=== PATIENT | male | born 1990 ===

== ENCOUNTER 2018-01-25 20:25 | Emergency (ER) | payer OTHER ==
[2018-01-25] MEDS ORDERED: Tetan/Diph/Pertus SYR(Tdap)* 0.5 ML SYR(BOOSTRIX) use SYR IM ONE (20:54)
--- NOTE | 2018-01-25 20:54 | UC ---
UC General HPI - HPI Summary HPI Summary: 27 yo gentleman presents with c/o L earlobe redness, swelling progressively worse last few days. No fever / chills. Reports similar problem with R earlobe several years ago - abscess. No other sores or rash. Has tried warm compress, but still worse. Recalls having had a tetanus immun in the past, last date unk. No current or recent abx. - History of Current Complaint Chief Complaint: UCEar Stated Complaint: SOFT TISSUE Time Seen by Provider: 01/25/18 20:46 Hx Obtained From: Patient Pain Intensity: 3 - Allergy/Home Medications Allergies/Adverse Reactions: Allergies Allergy/AdvReac Type Severity Reaction Status Date / Time No Known Allergies Allergy Verified 01/25/18 20:37 Home Medications: Home Medications Ibuprofen TAB* [Advil TAB*] 400 mg PO ONCE PRN 01/25/18 [History Confirmed 01/25] PMH/Surg Hx/FS Hx/Imm Hx Previously Healthy: Yes - still looking for a pcp and dentist - Surgical History Surgical History: None - Family History Known Family History: Positive: Unknown - Social History Occupation: Employed Full-time Alcohol Use: Occasionally Substance Use Type: None Smoking Status (MU): Current Every Day Smoker Type: Cigarettes Amount Used/How Often: 1/2 PPD Review of Systems Constitutional: Negative Skin: Other - see hpi Eyes: Negative ENT: Other - see hpi Respiratory: Negative Cardiovascular: Negative Gastrointestinal: Negative Genitourinary: Negative Motor: Negative Neurovascular: Negative Musculoskeletal: Negative Neurological: Negative Psychological: Negative Is Patient Immunocompromised?: No All Other Systems Reviewed And Are Negative: Yes Physical Exam Triage Information Reviewed: Yes Appearance: Well-Appearing - Nontoxic appearance. Sitting up, conversing easily and appropriately., Thin Vital Signs: Initial Vital Signs Temp 97.7 F 01/25/18 20:31 Pulse 79 01/25/18 20:31 Resp 16 01/25/18 20:31 BP 128/90 01/25/18 20:31 Pulse Ox 99 01/25/18 20:31 Eye Exam: Normal - grossly normal ENT: Positive: Hearing grossly normal, Pharynx normal, Other - L earlobe + red , + swelling. Redness fairly localized, extends just behind L ear, not superior. No trismus. EAC ok. TM intact. Neck supple, without appreciable adenopathy. Course/Dx - Course Course Of Treatment: L earlobe with abscess and local cellulitis. IM ancef. Boostrix tet booster. Procedure: Incision (needle) and drainage of earlobe abscess. Anesthesia: local lidocaine with epinephrine 0.5cc 1%. Time out performed / informed consent obtained. Clean technique. Site cleansed with alcohol swab. #18 guage needle -> approx 2 cc yellow purulence. The site was further extended to 0.3cm via #18 g. Capsule of abscess removed. Cx sent. Tolerated procedure well, without complication. Feels better afterwards. Reviewed coa/ tx plan with pt and companions. Questions as posed answered to the best of my ability. - Differential Dx - Multi-Symptom Provider Diagnoses: Left earlobe abscess and cellulitis Discharge - Discharge Plan Condition: Stable Disposition: HOME Prescriptions: DOXYcycline CAP(*) [DOXYcycline 100MG CAP(*)] 100 mg PO BID #14 cap Patient Education Materials: Diphtheria/Acellular Pertussis/Tetanus Booster Vaccine (By injection), Cellulitis (ED), Abscess (ED) Forms: *Work Release Referrals: [facility] [Outside] No Primary Care Phys,NOPCP [Primary Care Provider] - Additional Instructions: Please follow up with a primary care physician as soon as you are able. Recheck in 2 days if possible. Please go to the Emergency Department if worse or new symptoms. Wound culture today - you will be called only if your antibiotic needs to be changed. Tetanus booster given today. Ancef 500mg IM (antibiotic) given today. Doxycycline 100mg once given today. Please fill your prescription for doxycycline tomorrow.
[2018-01-25] MEDS ORDERED: Lidocaine 2% PF * 5 ML VIAL INJ ONE (20:55)
[2018-01-25] MEDS ORDERED: ceFAZolin 500 MG VIAL(*) 500 MG VIAL IM ONE (21:29)
[2018-01-25] MEDS ORDERED: DOXYcycline CAP(*) 100 MG PO ONE (21:29)
== END 2018-01-25 22:05 | disposition home or self-care (01) ==
LOC: UCEAST 20:25
DX: H60.02 Abscess of left external ear (principal); H60.12 Cellulitis of left external ear; Z23 Encounter for immunization; F17.210 Nicotine dependence, cigarettes, uncomplicated
CPT/HCPCS: 69000; 87070; 87205; 87640; 87641; 90471; 90715; 96372; 99202; A9270-GY; G0463; J0690

== ENCOUNTER 2018-02-12 12:03 | Emergency (ER) | payer OTHER ==
--- NOTE | 2018-02-12 13:20 | RAD ---
HISTORY: Right foot injury COMPARISONS: None VIEWS: 3, Frontal, lateral, and oblique views of the right foot FINDINGS: BONE DENSITY: Normal. BONES: There is no displaced fracture. JOINTS: There is no arthropathy. ALIGNMENT: There is no dislocation. SOFT TISSUES: Unremarkable. OTHER FINDINGS: None. IMPRESSION: NO ACUTE OSSEOUS INJURY. IF SYMPTOMS PERSIST, RECOMMEND REPEAT IMAGING.
[2018-02-12] MEDS ORDERED: Acetaminophen TAB* 325 MG PO ONE (13:45)
--- NOTE | 2018-02-12 14:11 | UC ---
Wali Hughes Rebecca, scribed for Susan Holley MD on 02/12/18 at 1332 . Lower Extremity/Ankle HPI - HPI Summary HPI Summary: Pt is a 27 y/o M who presents to [facility] accompanied by his brother and sister c/ o R ankle and foot pain. While playing soccer yesterday, the pt went to kick a ball and it is suspected that he accidentally kicked a friend. Pain is severe, ranked 10/10, characterized as throbbing. Pt took Ibuprofen this morning for the pain and pain is aggravated by ADLs. Denies numbness and tingling.No knee pain Sister is acting as a home school teacher, as the pt's shosh[place]bann[place] language is Karena. Pt's medications reviewed this visit - History of Current Complaint Chief Complaint: UCLowerExtremity Stated Complaint: ANKLE INJURY Time Seen by Provider: 02/12/18 13:28 Hx Obtained From: Patient Onset/Duration: Lasting Days - Began yesterday, Still Present Severity Currently: Severe Pain Intensity: 10 Pain Scale Used: 0-10 Numeric Aggravating Factor(s): Other - ADLs Alleviating Factor(s): Rest Able to Bear Weight: Yes - with limp - Allergies/Home Medications Allergies/Adverse Reactions: Allergies Allergy/AdvReac Type Severity Reaction Status Date / Time No Known Allergies Allergy Verified 02/12/18 12:32 PMH/Surg Hx/FS Hx/Imm Hx - Additional Past Medical History Additional PMH: NEGATIVE PMHx: HTN, DM Previously Healthy: Yes - Surgical History Surgical History: None - Family History Known Family History: Positive: None Family History: Patient denies any significant family history - Social History Occupation: Employed Full-time Lives: With Family Alcohol Use: Occasionally Substance Use Type: None Smoking Status (MU): Current Every Day Smoker Type: Cigarettes Amount Used/How Often: 1/2 PPD Review of Systems Constitutional: Negative Skin: Negative Eyes: Negative ENT: Negative Respiratory: Negative Cardiovascular: Negative Gastrointestinal: Negative Genitourinary: Negative Motor: Negative Neurovascular: Negative Musculoskeletal: Arthralgia - R ankle and foot pain Neurological: Negative Psychological: Negative All Other Systems Reviewed And Are Negative: Yes Physical Exam Triage Information Reviewed: Yes Appearance: Well-Appearing, No Pain Distress, Well-Nourished Vital Signs: Initial Vital Signs Temp 98.5 F 02/12/18 12:25 Pulse 68 02/12/18 12:25 Resp 18 02/12/18 12:25 BP 124/81 02/12/18 12:25 Pulse Ox 99 02/12/18 12:25 Vital Signs Reviewed: Yes Eyes: Positive: Conjunctiva Clear ENT: Positive: Hearing grossly normal Neck: Positive: Supple Respiratory: Positive: No respiratory distress, No accessory muscle use Cardiovascular: Positive: Other: - 2+ dp, pt CBT < 2 sec Musculoskeletal: Positive: Other: - + SLE + flex/ext knee + flex/ext ankle with discomfort medial anterior foot + TTP anterior medial foot no pain metatarsals, phalanges Neurological Exam: Normal Skin: Positive: Other - mild edema medial foot no ecchymosis Diagnostics - Radiology Foot XR Xray Interpretation: No Acute Changes - NO ACUTE OSSEOUS INJURY. IF SYMPTOMS PERSIST, RECOMMEND REPEAT IMAGING. Physician reviewed this radiology report. Radiology Interpretation Completed By: Radiologist Lower Extremity Course/Dx - Course Course Of Treatment: Patients medication reviewed this visit. Pt with medial prox foot pain s/p soccer injury. imaging neg. vita. splint. crutches. ice. elevate. motrin/apap - Differential Dx/Diagnosis Provider Diagnoses: foot sprain Discharge - Sign-Out/Discharge Documenting (check all that apply): Discharge - Discharge Plan Condition: Stable Disposition: HOME Patient Education Materials: Ankle Sprain (ED) Referrals: [facility] [Provider Group] No Primary Care Phys,NOPCP [Primary Care Provider] - Additional Instructions: -wear vita wrap for comfort and support -apply ice (20 min at a time) every 2-3 hours for the next 2 days -use crutches until you can walk normally without a limp - okay to alternate ibuprofen (Advil, Motrin) and Tylenol every 6 hours for pain. Take with food. Do NOT take for more than 4-5 days -Elevate your leg - this will help with swelling and pain -Contact the sports medicine provider to arrange a follow-up appointment next week. Contact your doctor or return with questions or concerns - Billing Disposition and Condition Condition: STABLE Disposition: HOME The documentation as recorded by the Wali wolf Rebecca accurately reflects the service I personally performed and the decisions made by , Susan Holley MD.
== END 2018-02-12 14:30 | disposition home or self-care (01) ==
LOC: UCEAST 12:03
DX: S93.601A Unspecified sprain of right foot, initial encounter (principal); Y93.66 Activity, soccer; Y92.9 Unspecified place or not applicable; F17.210 Nicotine dependence, cigarettes, uncomplicated
CPT/HCPCS: 99213; A9270-GY; G0463

== ENCOUNTER 2018-04-11 18:25 | Emergency (ER) | payer OTHER ==
[2018-04-11 18:34] VITALS: BP 112/77
[2018-04-11] MEDS ORDERED: Ketorolac INJ* 30 MG/ML 1 ML VIAL IM ONE (18:48)
--- NOTE | 2018-04-11 18:51 | ED ---
Back Pain - HPI Summary HPI Summary: 28M presents with back pain for the past couple days. He states pain is greatest on left side and goes partially down left leg. It hurts more after working a long shift. He denies any injury. no numbness or tingling. no fever. no saddle anaesthesia or loss of bowel or bladder. tried some ibuprofen with minimal relief. no weakness. - History of Current Complaint Chief Complaint: UCBackPain Stated Complaint: BACK PAIN Time Seen by Provider: 04/11/18 18:41 Pain Intensity: 8 - Allergies/Home Medications Allergies/Adverse Reactions: Allergies Allergy/AdvReac Type Severity Reaction Status Date / Time No Known Allergies Allergy Verified 04/11/18 18:34 PMH/Surg Hx/FS Hx/Imm Hx Endocrine/Hematology History: Denies: Hx Anticoagulant Therapy Respiratory History: Denies: Hx Asthma Infectious Disease History: No Infectious Disease History: Denies: Traveled Outside the [place] in Last 30 Days - Family History Known Family History: Positive: None, Unknown Family History: Patient denies any significant family history - Social History Alcohol Use: Occasionally Substance Use Type: Reports: None Smoking Status (MU): Current Every Day Smoker Type: Cigarettes Amount Used/How Often: 1/2 PPD Review of Systems Negative: Fever Negative: Chest Pain Negative: Shortness Of Breath Positive: Myalgia - back pain All Other Systems Reviewed And Are Negative: Yes Physical Exam Triage Information Reviewed: Yes Vital Signs On Initial Exam: Initial Vitals Temp Pulse Resp BP Pulse Ox 98.0 F 70 18 112/77 98 04/11/18 18:30 04/11/18 18:30 04/11/18 18:30 04/11/18 18:30 04/11/18 18:30 Vital Signs Reviewed: Yes Appearance: Positive: Well-Appearing Skin: Positive: Warm, Dry Head/Face: Positive: Normal Head/Face Inspection Eyes: Positive: Normal, Conjunctiva Clear ENT: Positive: Pharynx normal Respiratory/Lung Sounds: Positive: Clear to Auscultation, Breath Sounds Present Cardiovascular: Positive: Normal, RRR Musculoskeletal: Positive: Strength/ROM Intact - back, Other - tenderness left side of back, no midline tenderness, tenderness over SI joint, good sensation, good pulses Neurological: Positive: Normal, Reflexes Intact - patella Psychiatric: Positive: Normal Diagnostics - Vital Signs Vital Signs Temp Pulse Resp BP Pulse Ox 04/11/18 18:30 98.0 F 70 18 112/77 98 - Laboratory Lab Statement: Any lab studies that have been ordered have been reviewed, and results considered in the medical decision making process. Back Pain Course/Dx - Course Course Of Treatment: 28M presents with back pain for the past couple days. He states pain is greatest on left side and goes partially down left leg. It hurts more after working a long shift. He denies any injury. no numbness or tingling. no fever. no saddle anaesthesia or loss of bowel or bladder. tried some ibuprofen with minimal relief. will give toradol and prescribe flexeril. told to modifiy way is lifting at work. patient understand and agrees with plan. - Diagnoses Differential Diagnosis/HQI/PQRI: Positive: Herniated Disc, Strain, Sprain Provider Diagnoses: Back pain Discharge - Sign-Out/Discharge Documenting (check all that apply): Discharge/Admit/Transfer - Discharge Plan Condition: Good Disposition: HOME Prescriptions: Cyclobenzaprine TAB* [Flexeril 10 MG TAB*] 10 mg PO TID PRN #9 tab PRN Reason: Pain Patient Education Materials: Back Pain (ED) Forms: *Work Release Referrals: Debra Patiño PA [Primary Care Provider] - Additional Instructions: Take muscle relaxers three times a day, start with at night as may make drowsy Use ibuprofen or Tylenol for pain every 6 hours ice/heat area, move as much as possible follow up with primary within 5 days Return to ED if develop any new or worsening symptoms - Billing Disposition and Condition Condition: GOOD Disposition: HOME
== END 2018-04-11 19:09 | disposition home or self-care (01) ==
LOC: UCEAST 18:25
DX: M54.9 Dorsalgia, unspecified (principal); M79.605 Pain in left leg; F17.210 Nicotine dependence, cigarettes, uncomplicated
CPT/HCPCS: 96372; 99212; G0463; J1885

== ENCOUNTER 2018-10-24 11:12 | Emergency (ER) | payer SELFPAY ==
[2018-10-24 11:40] VITALS: BP 122/81
[2018-10-24] MEDS ORDERED: Lidocaine 1%* 5 ML VIAL INJ ONE (12:35)
--- NOTE | 2018-10-24 12:38 | ED ---
Laceration/Wound HPI - HPI Summary HPI Summary: 28 year old male presents with right thumb laceration today. He states a chain at work snapped and hit his right thumb. He is full range of motion of his finger. He has minimal pain. no active bleeding. unsure when last tetanus was. no medical conditions. - History of Current Complaint Stated Complaint: THUMB LAC Time Seen by Provider: 10/24/18 12:31 Pain Intensity: 5 - Allergy/Home Medications Allergies/Adverse Reactions: Allergies Allergy/AdvReac Type Severity Reaction Status Date / Time No Known Allergies Allergy Verified 10/24/18 11:39 PMH/Surg Hx/FS Hx/Imm Hx Endocrine/Hematology History: Denies: Hx Anticoagulant Therapy, Hx Diabetes, Hx Thyroid Disease Cardiovascular History: Denies: Hx Hypertension Respiratory History: Denies: Hx Asthma, Hx Chronic Obstructive Pulmonary Disease (COPD) GI History: Denies: Hx Ulcer Infectious Disease History: No Infectious Disease History: Denies: Hx Hepatitis, Hx Human Immunodeficiency Virus (HIV), Traveled Outside the in Last 30 Days - Family History Known Family History: Positive: None, Unknown Family History: Patient denies any significant family history - Social History Alcohol Use: Occasionally Substance Use Type: Reports: None Smoking Status (MU): Current Every Day Smoker Type: Cigarettes Amount Used/How Often: 1/2 PPD Review of Systems Negative: Fever Negative: Chest Pain Negative: Shortness Of Breath Positive: Other - right thumb laceration All Other Systems Reviewed And Are Negative: Yes Physical Exam Triage Information Reviewed: Yes Vital Signs On Initial Exam: Initial Vitals Temp Pulse Resp BP Pulse Ox 98.0 F 67 18 122/81 100 10/24/18 11:32 10/24/18 11:32 10/24/18 11:32 10/24/18 11:32 10/24/18 11:32 Vital Signs Reviewed: Yes Appearance: Positive: Well-Appearing Skin: Positive: Warm, Dry, Other - 3cm by 1/2cm flap like laceration to distal phalanx of right thumb Head/Face: Positive: Normal Head/Face Inspection Eyes: Positive: Normal, Conjunctiva Clear ENT: Positive: Pharynx normal Respiratory/Lung Sounds: Positive: Clear to Auscultation, Breath Sounds Present Cardiovascular: Positive: Normal, RRR Musculoskeletal: Positive: Strength/ROM Intact - right thumb, Other - capillary refill<2 secs Neurological: Positive: Normal Psychiatric: Positive: Normal Procedures - Laceration/Wound Repair 1 Location: Other - thumb laceration Description: Irregular Anesthesia: Digital, 1.0% Length, Depth and Shape: 3cm by 1/2cm Irrigated w/ Saline (ccs): 300 Closure: Single Layer Suture Type: Prolene Number of Sutures: 4 Layer Closure?: No Sterile Dressing Applied?: No Diagnostics - Vital Signs Vital Signs Temp Pulse Resp BP Pulse Ox 10/24/18 11:32 98.0 F 67 18 122/81 100 - Laboratory Lab Statement: Any lab studies that have been ordered have been reviewed, and results considered in the medical decision making process. Laceration Repair Course/Dx - Course Course Of Treatment: 28 year old male presents with right thumb laceration today. He states a chain at work snapped and hit his right thumb. He is full range of motion of his finger. He has minimal pain. no active bleeding. unsure when last tetanus was. no medical conditions. on exam has 3cm by 1/2cm cleaned and closed with 4 sutures. told to keep the area clean and dry. gave tetanus. patient understand and agrees with plan. - Differential Dx Differental Diagnoses: Abrasion, Avulsion, Laceration - Clinical Impression Provider Diagnoses: Laceration of thumb Discharge - Sign-Out/Discharge Documenting (check all that apply): Patient Departure All imaging exams completed and their final reports reviewed: No Studies - Discharge Plan Condition: Good Disposition: HOME Prescriptions: Cephalexin CAP* [Keflex CAP*] 500 mg PO BID #10 cap Patient Education Materials: Care For Your Stitches (DC) Referrals: Debra Patiño PA [Primary Care Provider] - Additional Instructions: take keflex twice a day for 5 days Take Tylenol or ibuprofen for pain every 6 hours as needed Keep area clean and dry for 24 hours Return to urgent care or primary in 8-10 days to have sutures removed Return to UC if develop signs of infection such as fever, spreading redness, or pus. - Billing Disposition and Condition Condition: GOOD Disposition: Home - Attestation Statements Provider Attestation: Per institutional requirements, I have reviewed the chart, however, I was not consulted specifically or made aware of this patient by the midlevel provider. I did not personally evaluate, interact with , or disposition this patient.
[2018-10-24] MEDS ORDERED: Tetan/Diph/Pertus SYR(Tdap)* 0.5 ML SYR(BOOSTRIX) use SYR IM ONE (12:57)
== END 2018-10-24 13:09 | disposition home or self-care (01) ==
LOC: UCEAST 11:12
DX: S61.011A Laceration without foreign body of right thumb without damage to nail, initial encounter (principal); W45.8XXA Other foreign body or object entering through skin, initial encounter; Y99.0 Civilian activity done for income or pay; F17.210 Nicotine dependence, cigarettes, uncomplicated
CPT/HCPCS: 12001; 12002; 99212; G0463